=== PATIENT | female | born 1975 | race Caucasian/White ===

== ENCOUNTER 2017-03-05 07:13 | Observation (INO) | payer BC, OTHER ==
[2017-03-05] MEDS ORDERED: Diazepam 5 MG Tab PO ONE (07:29)
[2017-03-05] MEDS ORDERED: HYDROmorphone 1 MG/ML Syringe IM ONE (07:29)
--- NOTE | 2017-03-05 07:35 | EDM.PDOC ---
ED HPI LOWER BACK PAIN/INJURY - General Chief Complaint: Back Pain or Injury Stated Complaint: [facility] Time Seen by Provider: 03/05/17 07:19 Source of Information: Reports: Patient, EMS History Limitations: Reports: No limitations - History of Present Illness INITIAL COMMENTS - FREE TEXT/NARRATIVE: The patient presents with severe low back pain and cramping. This all started last week and it has gotten progressively worse. She was starting to work out more last week with running and lifting weights. She denies any acute injury such as a fall or lifting. She has no numbness or weakness in her legs. She has no bowel or bladder problems. She has no fever, chills, cough, congestion, runny nose, chest pain, shortness of breath, abdominal pain, nausea or vomiting. She says she has a history of back problems and she has been going to her message therapist and doing much better so she decided to work out more last week. 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: Reports: Endocrine/Metabolic History: Reports: Hypothyroidism - Past Surgical History Female Surgical History: Reports: section Social & Family History - Tobacco Use Smoking Status *Q: Never Smoker - Caffeine Use Caffeine Use: Reports: None - Recreational Drug Use Recreational Drug Use: No ED ROS GENERAL - Review of Systems Review Of Systems: See Below Constitutional: Reports: no symptoms HEENT: Reports: No symptoms Respiratory: Reports: No Symptoms Cardiovascular: Reports: No symptoms Endocrine: Reports: no symptoms GI/Abdominal: Reports: No symptoms : Reports: no symptoms Musculoskeletal: Reports: back pain Skin: Reports: no symptoms Neurological: Reports: No Symptoms ED EXAM,LOWER BACK PAIN/INJURY - Physical Exam Exam: See Below Exam Limited By: No limitations General Appearance: alert, no apparent distress Ears: normal external exam Nose: normal inspection Head: atraumatic, normocephalic Neck: normal inspection Respiratory/Chest: no respiratory distress, lungs clear, normal breath sounds Cardiovascular: regular rate, rhythm, no edema, no murmur GI/Abdominal: soft, non tender, no organomegaly, no mass Back Exam: muscle spasm, paraspinal tenderness Extremities: normal inspection Neurological: alert, no motor/sensory deficits, oriented x 3 Course - Vital Signs Last Recorded V/S: Last Vital Signs Temp 97.4 F 03/05/17 07:15 Pulse 83 03/05/17 07:15 Resp 16 03/05/17 07:15 BP 141/81 H 03/05/17 07:15 Pulse Ox 99 03/05/17 07:15 - Orders/Labs/Meds Orders: Active Orders 24 hr Category Date Time Status Cardiac Monitoring [RC] . DIRECTED Care 03/05/17 07:37 Active Peripheral IV Care [RC] . DIRECTED Care 03/05/17 07:38 Active Sodium Chloride 0.9% [Normal Saline] 1,000 ml Med 03/05/17 07:45 Active IV .BOLUS Sodium Chloride 0.9% [Saline Flush] Med 03/05/17 07:37 Active 10 ml FLUSH ASDIRECTED PRN Peripheral IV Insertion Adult [OM.PC] Stat Oth 03/05/17 07:37 Ordered Medication Orders Sodium Chloride (Normal Saline) 1,000 mls @ 1,000 mls/hr IV .BOLUS BALTAZAR Last Admin: 03/05/17 08:00 Dose: 1,000 mls/hr Sodium Chloride (Saline Flush) 10 ml FLUSH ASDIRECTED PRN PRN Reason: Keep Vein Open Last Admin: 03/05/17 07:57 Dose: 10 ml Labs: Laboratory Tests 03/05/17 03/05/17 03/05/17 Range/Units 08:32 08:32 08:32 WBC 11.12 H (3.98-10.04) K/mm3 RBC 5.00 (3.98-5.22) M/mm3 Hgb 14.4 (11.2-15.7) gm/L Hct 42.9 (34.1-44.9) % MCV 85.8 (79.4-94.8) fl MCH 28.8 (25.6-32.2) pg MCHC 33.6 (32.2-35.5) g/dl RDW Std Deviation 40.9 (36.4-46.3) fL Plt Count 207 (182-369) K/mm3 MPV 10.5 (9.4-12.3) fl Neut % (Auto) 79.9 H (34.0-71.1) % Lymph % (Auto) 12.8 L (19.3-51.7) % [place] % (Auto) 5.4 (4.7-12.5) % Eos % (Auto) 1.4 (0.7-5.8) Baso % (Auto) 0.4 (0.1-1.2) % Neut # (Auto) 8.89 H (1.56-6.13) K/mm3 Lymph # (Auto) 1.42 (1.18-3.74) K/mm3 [place] # (Auto) 0.60 H (0.24-0.36) K/mm3 Eos # (Auto) 0.16 (0.04-0.36) K/mm3 Baso # (Auto) 0.04 (0.01-0.08) K/mm3 Sodium 141 (136-145) mEq/L Potassium 4.1 (3.5-5.1) mEq/L Chloride 104 (98-107) mEq/L Carbon Dioxide 27 (21-32) mEq/L Anion Gap 14.1 (5-15) BUN 13 (7-18) mg/dL Creatinine 0.8 (0.55-1.02) mg/dL Est Cr Clr Drug Dosing 86.63 mL/min Estimated GFR (MDRD) > 60 (>60) mL/min BUN/Creatinine Ratio 16.3 (14-18) Glucose 107 H (74-106) mg/dL Calcium 8.7 (8.5-10.1) mg/dL Total Bilirubin 0.8 (0.2-1.0) mg/dL AST 20 (15-37) U/L ALT 34 (14-59) U/L Alkaline Phosphatase 49 (46-116) U/L Total Protein 7.5 (6.4-8.2) g/dl Albumin 3.8 (3.4-5.0) g/dl Globulin 3.7 gm/dL Albumin/Globulin Ratio 1.0 (1-2) HCG, Qual Negative (NEGATIVE) Urine Color (Yellow) Urine Appearance (Clear) Urine pH (5.0-8.0) Ur Specific [place] (1.005-1.030) Urine Protein (Negative) Urine Glucose (UA) (Negative) Urine Ketones (Negative) Urine Occult Blood (Negative) Urine Nitrite (Negative) Urine Bilirubin (Negative) Urine Urobilinogen (0.2-1.0) Ur Leukocyte Esterase (Negative) Urine RBC (0-5) /hpf Urine WBC (0-5) /hpf Ur Epithelial Cells Ur Squamous Epith Cells (0-5) /hpf Urine Bacteria (FEW) /hpf Urine Mucus (FEW) /hpf 03/05/17 Range/Units 09:19 WBC (3.98-10.04) K/mm3 RBC (3.98-5.22) M/mm3 Hgb (11.2-15.7) gm/L Hct (34.1-44.9) % MCV (79.4-94.8) fl MCH (25.6-32.2) pg MCHC (32.2-35.5) g/dl RDW Std Deviation (36.4-46.3) fL Plt Count (182-369) K/mm3 MPV (9.4-12.3) fl Neut % (Auto) (34.0-71.1) % Lymph % (Auto) (19.3-51.7) % [place] % (Auto) (4.7-12.5) % Eos % (Auto) (0.7-5.8) Baso % (Auto) (0.1-1.2) % Neut # (Auto) (1.56-6.13) K/mm3 Lymph # (Auto) (1.18-3.74) K/mm3 [place] # (Auto) (0.24-0.36) K/mm3 Eos # (Auto) (0.04-0.36) K/mm3 Baso # (Auto) (0.01-0.08) K/mm3 Sodium (136-145) mEq/L Potassium (3.5-5.1) mEq/L Chloride (98-107) mEq/L Carbon Dioxide (21-32) mEq/L Anion Gap (5-15) BUN (7-18) mg/dL Creatinine (0.55-1.02) mg/dL Est Cr Clr Drug Dosing mL/min Estimated GFR (MDRD) (>60) mL/min BUN/Creatinine Ratio (14-18) Glucose (74-106) mg/dL Calcium (8.5-10.1) mg/dL Total Bilirubin (0.2-1.0) mg/dL AST (15-37) U/L ALT (14-59) U/L Alkaline Phosphatase (46-116) U/L Total Protein (6.4-8.2) g/dl Albumin (3.4-5.0) g/dl Globulin gm/dL Albumin/Globulin Ratio (1-2) HCG, Qual (NEGATIVE) Urine Color Yellow (Yellow) Urine Appearance Clear (Clear) Urine pH 7.0 (5.0-8.0) Ur Specific [place] 1.020 (1.005-1.030) Urine Protein Negative (Negative) Urine Glucose (UA) Negative (Negative) Urine Ketones Negative (Negative) Urine Occult Blood Negative (Negative) Urine Nitrite Negative (Negative) Urine Bilirubin Negative (Negative) Urine Urobilinogen 0.2 (0.2-1.0) Ur Leukocyte Esterase Negative (Negative) Urine RBC 0-5 (0-5) /hpf Urine WBC 0-5 (0-5) /hpf Ur Epithelial Cells Not Reportable Ur Squamous Epith Cells 0-5 (0-5) /hpf Urine Bacteria Rare (FEW) /hpf Urine Mucus Moderate H (FEW) /hpf Meds: Medications Generic Name Dose Route Start Last Admin Trade Name Freq PRN Reason Stop Dose Admin Sodium Chloride 1,000 mls @ 1,000 mls/hr 03/05/17 07:45 03/05/17 08:00 Normal Saline IV 1,000 mls/hr .BOLUS BALTAZAR Administration Sodium Chloride 10 ml 03/05/17 07:37 03/05/17 07:57 Saline Flush FLUSH 10 ml ASDIRECTED PRN Administration Keep Vein Open Discontinued Medications Generic Name Dose Route Start Last Admin Trade Name Freq PRN Reason Stop Dose Admin Diazepam 10 mg 03/05/17 07:29 03/05/17 07:34 Valium. PO 03/05/17 07:30 10 mg ONETIME ONE Administration Hydromorphone HCl 1 mg 03/05/17 07:29 03/05/17 07:34 Dilaudid IM 03/05/17 07:30 1 mg ONETIME ONE Administration Hydromorphone HCl 1 mg 03/05/17 09:00 03/05/17 09:10 Dilaudid IVPUSH 03/05/17 09:01 1 mg ONETIME ONE Administration Ketorolac Tromethamine 30 mg 03/05/17 10:04 03/05/17 10:09 Toradol IVPUSH 03/05/17 10:05 30 mg ONETIME ONE Administration - Re-Assessments/Exams Free Text/Narrative Re-Assessment/Exam: 03/05/17 07:35 I ordered dilaudid 1mg IM and some valium 10mg by mouth. 03/05/17 10:49 Her x-ray shows minimal degenerative changes. Her CBC and CMP look good. Her HCG is negative. Her UA shows no UTI. I gave her more dilaudid 1mg IV and some toradol 30mg IV. She cannot get up out of bed. I feel she needs to be admitted. I called Dr Pollard and he will come admit the patient. Departure - Departure Time of Disposition: 10:55 Disposition: Refer to Observation Condition: fair Clinical Impression: Intractable low back pain Low back pain Qualifiers: Chronicity: acute Back pain laterality: bilateral Sciatica presence: without sciatica Qualified Code(s): M54.5 - Low back pain Forms: ED Department Discharge - My Orders Last 24 Hours: My Active Orders 03/05/17 07:37 Cardiac Monitoring [RC] . DIRECTED Sodium Chloride 0.9% [Saline Flush] 10 ml FLUSH ASDIRECTED PRN Peripheral IV Insertion Adult [OM.PC] Stat 03/05/17 07:38 Peripheral IV Care [RC] . DIRECTED 03/05/17 07:45 Sodium Chloride 0.9% [Normal Saline] 1,000 ml IV .BOLUS - Assessment/Plan Last 24 Hours: My Active Orders 03/05/17 07:37 Cardiac Monitoring [RC] . DIRECTED Sodium Chloride 0.9% [Saline Flush] 10 ml FLUSH ASDIRECTED PRN Peripheral IV Insertion Adult [OM.PC] Stat 03/05/17 07:38 Peripheral IV Care [RC] . DIRECTED 03/05/17 07:45 Sodium Chloride 0.9% [Normal Saline] 1,000 ml IV .BOLUS
[2017-03-05] MEDS ORDERED: Sodium Chloride 0.9% 10 ML Syringe FLUSH PRN (07:37)
[2017-03-05] MEDS ORDERED: Sodium Chloride 0.9% 1,000 ML IV SCH (07:45)
[2017-03-05] MEDS ORDERED: HYDROmorphone 1 MG/ML Syringe IVPUSH ONE (09:00)
[2017-03-05] MEDS ORDERED: Ketorolac 30 MG/ML SDV IVPUSH ONE (10:04)
--- NOTE | 2017-03-05 10:29 | CR ---
Lumbar spine: AP, lateral and coned-down lateral view centered to the lumbosacral junction were obtained. Vertebral body heights and disc spaces are maintained. Mild scattered endplate osteophytes are seen. Pedicles as well as transverse and spinous processes are intact. No subluxation or fracture is seen. Mild increased stool is noted within the colon. Impression: 1. Minimal degenerative change. 2. Mild increased stool within the colon. Diagnostic code #2
--- NOTE | 2017-03-05 10:56 | PCM.HP ---
H&P History of Present Illness - General Date of Service: 03/05/17 - History of Present Illness Initial Comments - Free Text/Narative: This is a pleasant 41-year-old with history of hypothyroidism back pain one year ago who now presents with an acute flareup of her back pain. She is unable to tell me what was the original trigger that started her back pain one year ago. Since then she has been getting massage therapy which has been helping. She is not on any chronic pain medications. 2 weeks ago she initiated more intensive exercise. Prior to that she was walking for exercise, but now started jogging for a couple minutes. She also started doing some weightlifting including bench presses, chest pressors, and rowing machine, and couple sessions of yoga. She also tried some sort of a stretching routine where she rolled on a foam noodle underneath her back. That was on Wednesday. The next few days and she started noticing some back pain which was getting worse. Throughout the week he became more intense, and became debilitating. She did take work off yesterday, and was bedbound. Her pain is in the lower back from right to left. Exacerbated by moving her legs actively. She reports some heaviness of her legs, but mostly pain is what limits her mobility. The pain is 10 out of 10. She denies any numbness, tingling, or urinary or bowel retention or incontinence. No perineal paresthesias reported. She came to the ER, and received 2 doses of IV Dilaudid, Valium, and Toradol without much help. She was still in intractable pain, which was now rated 8/10, and could not sit up. We are being asked to evaluate her for observation for her pain control. 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: Endocrine/Metabolic History: Reports: Hypothyroidism - Past Surgical History Female Surgical History: Reports: section, D&C Other Surgical History Comment: Tonsilectomy, invitro fertilization Social & Family History - Family History Cardiac: Reports: High cholesterol, Hypertension - Tobacco Use Smoking Status *Q: Never Smoker - Caffeine Use Caffeine Use: Reports: None - Alcohol Use Alcohol Use History: Yes Alcohol Use Frequency: Weekly - Recreational Drug Use Recreational Drug Use: No - Living Situation & Occupation 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 Denies: neck pain, joint swelling, muscle pain Skin: Denies: rash, lesions, lumps Psychiatric: Denies: confusion, depression, anxiety Neurological: Denies: Confusion, Dizziness, Headache, Numbness, Tingling, Weakness Hematologic/Lymphatic: Denies: easy bleeding, easy bruising Exam - Exam Exam: See Below - Vital Signs Vital Signs: Last Vital Signs Temp 36.3 C 03/05/17 07:15 Pulse 83 03/05/17 07:15 Resp 16 03/05/17 07:15 BP 141/81 H 03/05/17 07:15 Pulse Ox 99 03/05/17 07:15 Weight: 88.451 kg - Exam Physical Exam Comments:: Vitals: as above General: alert and oriented. patient is in severe pain with moving. She is essentially confined to the supine position in the bed. Psych: calm and cooperative HEENT: normocephalic, atraumatic. EOMI Cardiac: Normal S1, S2. regular rate. No murmurs rubs, or gallops. No JVD noted. Lungs: CTAB. good air entry bilaterally. Abd: Soft, NT/ND. No HSM noted. Skin: no new visible rashes or purpura noted Back: no point tenderness in the spine noted Neuro: CN grossly intact. positive straight leg raise test bilaterally. Strength otherwise appears to be intact and equal in both legs. - Patient Data Lab Results last 24 hrs: Laboratory Results - last 24 hr 04/07/17 04/07/17 04/07/17 Range/Units 08:32 08:32 08:32 WBC 11.12 H (3.98-10.04) K/mm3 RBC 5.00 (3.98-5.22) M/mm3 Hgb 14.4 (11.2-15.7) gm/L Hct 42.9 (34.1-44.9) % MCV 85.8 (79.4-94.8) fl MCH 28.8 (25.6-32.2) pg MCHC 33.6 (32.2-35.5) g/dl RDW Std Deviation 40.9 (36.4-46.3) fL Plt Count 207 (182-369) K/mm3 MPV 10.5 (9.4-12.3) fl Neut % (Auto) 79.9 H (34.0-71.1) % Lymph % (Auto) 12.8 L (19.3-51.7) % [place] % (Auto) 5.4 (4.7-12.5) % Eos % (Auto) 1.4 (0.7-5.8) Baso % (Auto) 0.4 (0.1-1.2) % Neut # (Auto) 8.89 H (1.56-6.13) K/mm3 Lymph # (Auto) 1.42 (1.18-3.74) K/mm3 [place] # (Auto) 0.60 H (0.24-0.36) K/mm3 Eos # (Auto) 0.16 (0.04-0.36) K/mm3 Baso # (Auto) 0.04 (0.01-0.08) K/mm3 Sodium 141 (136-145) mEq/L Potassium 4.1 (3.5-5.1) mEq/L Chloride 104 (98-107) mEq/L Carbon Dioxide 27 (21-32) mEq/L Anion Gap 14.1 (5-15) BUN 13 (7-18) mg/dL Creatinine 0.8 (0.55-1.02) mg/dL Est Cr Clr Drug Dosing 86.63 mL/min Estimated GFR (MDRD) > 60 (>60) mL/min BUN/Creatinine Ratio 16.3 (14-18) Glucose 107 H (74-106) mg/dL Calcium 8.7 (8.5-10.1) mg/dL Total Bilirubin 0.8 (0.2-1.0) mg/dL AST 20 (15-37) U/L ALT 34 (14-59) U/L Alkaline Phosphatase 49 (46-116) U/L Total Protein 7.5 (6.4-8.2) g/dl Albumin 3.8 (3.4-5.0) g/dl Globulin 3.7 gm/dL Albumin/Globulin Ratio 1.0 (1-2) HCG, Qual Negative (NEGATIVE) Urine Color (Yellow) Urine Appearance (Clear) Urine pH (5.0-8.0) Ur Specific [place] (1.005-1.030) Urine Protein (Negative) Urine Glucose (UA) (Negative) Urine Ketones (Negative) Urine Occult Blood (Negative) Urine Nitrite (Negative) Urine Bilirubin (Negative) Urine Urobilinogen (0.2-1.0) Ur Leukocyte Esterase (Negative) Urine RBC (0-5) /hpf Urine WBC (0-5) /hpf Ur Epithelial Cells Ur Squamous Epith Cells (0-5) /hpf Urine Bacteria (FEW) /hpf Urine Mucus (FEW) /hpf 03/05/17 Range/Units 09:19 WBC (3.98-10.04) K/mm3 RBC (3.98-5.22) M/mm3 Hgb (11.2-15.7) gm/L Hct (34.1-44.9) % MCV (79.4-94.8) fl MCH (25.6-32.2) pg MCHC (32.2-35.5) g/dl RDW Std Deviation (36.4-46.3) fL Plt Count (182-369) K/mm3 MPV (9.4-12.3) fl Neut % (Auto) (34.0-71.1) % Lymph % (Auto) (19.3-51.7) % [place] % (Auto) (4.7-12.5) % Eos % (Auto) (0.7-5.8) Baso % (Auto) (0.1-1.2) % Neut # (Auto) (1.56-6.13) K/mm3 Lymph # (Auto) (1.18-3.74) K/mm3 [place] # (Auto) (0.24-0.36) K/mm3 Eos # (Auto) (0.04-0.36) K/mm3 Baso # (Auto) (0.01-0.08) K/mm3 Sodium (136-145) mEq/L Potassium (3.5-5.1) mEq/L Chloride (98-107) mEq/L Carbon Dioxide (21-32) mEq/L Anion Gap (5-15) BUN (7-18) mg/dL Creatinine (0.55-1.02) mg/dL Est Cr Clr Drug Dosing mL/min Estimated GFR (MDRD) (>60) mL/min BUN/Creatinine Ratio (14-18) Glucose (74-106) mg/dL Calcium (8.5-10.1) mg/dL Total Bilirubin (0.2-1.0) mg/dL AST (15-37) U/L ALT (14-59) U/L Alkaline Phosphatase (46-116) U/L Total Protein (6.4-8.2) g/dl Albumin (3.4-5.0) g/dl Globulin gm/dL Albumin/Globulin Ratio (1-2) HCG, Qual (NEGATIVE) Urine Color Yellow (Yellow) Urine Appearance Clear (Clear) Urine pH 7.0 (5.0-8.0) Ur Specific [place] 1.020 (1.005-1.030) Urine Protein Negative (Negative) Urine Glucose (UA) Negative (Negative) Urine Ketones Negative (Negative) Urine Occult Blood Negative (Negative) Urine Nitrite Negative (Negative) Urine Bilirubin Negative (Negative) Urine Urobilinogen 0.2 (0.2-1.0) Ur Leukocyte Esterase Negative (Negative) Urine RBC 0-5 (0-5) /hpf Urine WBC 0-5 (0-5) /hpf Ur Epithelial Cells Not Reportable Ur Squamous Epith Cells 0-5 (0-5) /hpf Urine Bacteria Rare (FEW) /hpf Urine Mucus Moderate H (FEW) /hpf Result Diagrams: 03/05/17 08:32 03/05/17 08:32 Imaging Impressions last 24 hrs: lumbar x-ray without any acute vertebral abnormalities noted per radiology *Q Meaningful Use (ADM) - VTE *Q VTE Criteria *Q: - Stroke *Q Stroke Criteria *Q: - AMI *Q AMI Criteria *Q: - Problem List (1) Intractable low back pain SNOMED Code(s): 64227683823553716 ICD Code: M54.5 - LOW BACK PAIN Status: Acute Current Visit: Yes Problem List Initiated/Reviewed/Updated: Yes Orders Last 24hrs: Active Orders 24 hr Category Date Time Status Cardiac Monitoring [RC] . DIRECTED Care 03/05/17 07:37 Active Peripheral IV Care [RC] . DIRECTED Care 03/05/17 07:38 Active Sodium Chloride 0.9% [Normal Saline] 1,000 ml Med 03/05/17 07:45 Active IV .BOLUS Sodium Chloride 0.9% [Saline Flush] Med 03/05/17 07:37 Active 10 ml FLUSH ASDIRECTED PRN Peripheral IV Insertion Adult [OM.PC] Stat Oth 03/05/17 07:37 Ordered Medication Orders Sodium Chloride (Normal Saline) 1,000 mls @ 1,000 mls/hr IV .BOLUS BALTAZAR Last Admin: 03/05/17 08:00 Dose: 1,000 mls/hr Sodium Chloride (Saline Flush) 10 ml FLUSH ASDIRECTED PRN PRN Reason: Keep Vein Open Last Admin: 03/05/17 07:57 Dose: 10 ml Assessment/Plan Comment:: acute intractable back pain, probably triggered by her stretching exercises. This is more likely musculoskeletal. There is no significant weakness of the lower extremities, no complaints of bowel or bladder incontinence or retention, or perineal paresthesias. Patient wanted to defer MRI and attempt treatment with pain control. Will start her on ibuprofen 800 mg 3 times a day with small dose of PPI to prevent gastric upset. Keep IV hydromorphone for breakthrough pain. Start her on Flexeril for spasms. Also will try to lidocaine patches across the lower back for topical anesthesia. Consult PT. Chronic medical conditions: Hypothyroidism-continue levothyroxine The patient is full code DVT prophylaxis with subcutaneous Lovenox
[2017-03-05] MEDS ORDERED: Acetaminophen 325 MG Tab PO PRN (11:29)
[2017-03-05] MEDS ORDERED: Bisacodyl 10 MG Supp RECTAL PRN (11:29)
[2017-03-05] MEDS ORDERED: Ondansetron 4 MG Tab.DIS PO PRN (11:29)
[2017-03-05] MEDS ORDERED: Docusate Sodium 100 MG Cap PO PRN (11:29)
[2017-03-05] MEDS ORDERED: Bisacodyl 5 MG Tab PO PRN (11:29)
[2017-03-05] MEDS ORDERED: hydrALAZINE 10 MG Tab PO PRN (11:29)
[2017-03-05] MEDS ORDERED: Lidocaine 5% 700 MG Patch TOP SCH ×2 (11:45→12:23)
[2017-03-05] MEDS ORDERED: HYDROmorphone 0.5 MG/0.5 ML Syringe IVPUSH ONE (11:51)
[2017-03-05] MEDS: Cyclobenzaprine 10 MG Tab PO SCH ×3 (12:57→20:06)
[2017-03-05] MEDS: Ibuprofen 800 MG Tab PO SCH ×3 (12:57→20:06)
[2017-03-05] MEDS: Pantoprazole 40 MG Tab.CR PO SCH (12:57)
[2017-03-05] MEDS: HYDROmorphone 1 MG/ML Syringe IVPUSH PRN (17:37)
[2017-03-05] MEDS: Morphine 15 MG Tab.ER PO SCH (20:05)
[2017-03-06] MEDS: HYDROmorphone 1 MG/ML Syringe IVPUSH PRN ×2 (03:44→09:56)
[2017-03-06] MEDS: SYNTHROID 88 MCG PO SCH (06:29)
[2017-03-06] MEDS: Lidocaine 5% 700 MG Patch TOP SCH (07:38)
[2017-03-06] MEDS: Enoxaparin 40 MG/0.4 ML Syringe SUBCUT SCH (08:22)
[2017-03-06] MEDS: Ibuprofen 800 MG Tab PO SCH ×3 (08:23→20:48)
[2017-03-06] MEDS: Morphine 15 MG Tab.ER PO SCH ×2 (08:24→20:48)
[2017-03-06] MEDS: Pantoprazole 40 MG Tab.CR PO SCH (08:25)
[2017-03-06] MEDS: Cyclobenzaprine 10 MG Tab PO SCH ×3 (08:25→20:49)
--- NOTE | 2017-03-06 12:02 | PCM.PN ---
- General Info Date of Service: 03/06/17 Subjective Update: Denies precipitating factors with the exception of increase activity level within 24-48 of back pain. Functional Status: Reports: pain controlled, tolerating diet, ambulating - Review of Systems General: Reports: No Symptoms HEENT: Reports: no symptoms Pulmonary: Reports: no symptoms Cardiovascular: Reports: No Symptoms Gastrointestinal: Reports: No symptoms Genitourinary: Reports: no symptoms Musculoskeletal: Reports: no symptoms Skin: Reports: no symptoms Neurological: Reports: No Symptoms Psychiatric: Reports: no symptoms - Patient Data Vitals - most recent: Last Vital Signs Temp 36.7 C 03/06/17 08:30 Pulse 97 03/06/17 08:30 Resp 16 03/06/17 08:30 BP 130/74 03/06/17 08:30 Pulse Ox 95 03/06/17 08:30 Weight - most recent: 87.952 kg I&O - last 24 hours: Intake & Output 03/05/17 03/06/17 03/06/17 22:59 06:59 14:59 Intake Total 500 300 Output Total 600 550 Balance -100 -250 Med Orders - Current: Current Medications Acetaminophen (Tylenol) 650 mg PO Q4H PRN PRN Reason: Pain (Mild 1-3)/fever Bisacodyl (Dulcolax) 5 mg PO DAILY PRN PRN Reason: Constipation Bisacodyl (Dulcolax) 10 mg RECTAL DAILY PRN PRN Reason: Constipation Cyclobenzaprine HCl (Flexeril) 10 mg PO TID [facility] Last Admin: 03/06/17 08:25 Dose: 10 mg Docusate Sodium (Colace) 100 mg PO BID PRN PRN Reason: Constipation Enoxaparin Sodium (Lovenox) 40 mg SUBCUT DAILY [facility] Last Admin: 03/06/17 08:22 Dose: 40 mg Hydralazine HCl (Apresoline) 10 mg PO Q6H PRN PRN Reason: systolic BP>180 or diast>105 Hydromorphone HCl (Dilaudid) 1 - 2 mg IVPUSH Q3H PRN PRN Reason: Pain Last Admin: 03/06/17 09:56 Dose: 1 mg Ibuprofen (Motrin) 800 mg PO TID [facility] Last Admin: 03/06/17 08:23 Dose: 800 mg Lidocaine (Lidoderm 5%) 1,400 mg TOP Q24H [facility] Last Admin: 03/06/17 07:38 Dose: 1,400 mg Miscellaneous Information (Remove Patch) 0 ea TRDERM DAILY@1145 [facility] Last Admin: 03/05/17 13:00 Dose: Not Given Morphine Sulfate (Ms Contin) 15 mg PO Q12HR [facility] Last Admin: 03/06/17 08:24 Dose: 15 mg Ondansetron HCl (Zofran Odt) 4 mg PO Q6H PRN PRN Reason: nausea, able to take PO Pantoprazole Sodium (Protonix) 40 mg PO DAILY [facility] Last Admin: 03/06/17 08:25 Dose: 40 mg Synthroid 88 Mcg Tab 0 each PO ACBREAKFAST [facility] Last Admin: 03/06/17 06:29 Dose: 1 each Sodium Chloride (Saline Flush) 10 ml FLUSH ASDIRECTED PRN PRN Reason: Keep Vein Open Last Admin: 03/05/17 07:57 Dose: 10 ml Discontinued Medications Diazepam (Valium.) 10 mg PO ONETIME ONE Stop: 03/05/17 07:30 Last Admin: 03/05/17 07:34 Dose: 10 mg Hydromorphone HCl (Dilaudid) 1 mg IM ONETIME ONE Stop: 03/05/17 07:30 Last Admin: 03/05/17 07:34 Dose: 1 mg Hydromorphone HCl (Dilaudid) 1 mg IVPUSH ONETIME ONE Stop: 03/05/17 09:01 Last Admin: 03/05/17 09:10 Dose: 1 mg Hydromorphone HCl (Dilaudid) 0.5 mg IVPUSH ONETIME ONE Stop: 03/05/17 11:52 Last Admin: 03/05/17 11:56 Dose: 0.5 mg Sodium Chloride (Normal Saline) 1,000 mls @ 1,000 mls/hr IV .BOLUS [facility] Last Admin: 03/05/17 08:00 Dose: 1,000 mls/hr Ketorolac Tromethamine (Toradol) 30 mg IVPUSH ONETIME ONE Stop: 03/05/17 10:05 Last Admin: 03/05/17 10:09 Dose: 30 mg Lidocaine (Lidoderm 5%) 700 mg TOP Q24H [facility] Last Admin: 03/05/17 18:51 Dose: Not Given Lidocaine (Lidoderm 5%) 1,400 mg TOP Q24H [facility] Last Admin: 03/05/17 12:35 Dose: 1,400 mg - Exam Quality Assessment: DVT prophylaxis General: alert, oriented, cooperative HEENT: Pupils equal, Pupils reactive, EOMI Neck: supple, trachea midline, no JVD Lungs: Clear to auscultation Cardiovascular: Regular Rate, Regular Rhythm Abdomen: bowel sounds present, soft, no tenderness, no distension (Female) Exam: Deferred Back Exam: normal inspection Extremities: normal pulses Skin: warm Neurological: no new focal deficit Psy/Mental Status: alert, normal affect, normal mood - Problem List Review Problem List Initiated/Reviewed/Updated: Yes - Plan Plan:: Acute intractable back pain, probably triggered by her stretching exercises. This is more likely musculoskeletal. There is no significant weakness of the lower extremities, no complaints of bowel or bladder incontinence or retention, or perineal paresthesias. Patient wanted to defer MRI and attempt treatment with pain control. Will start her on ibuprofen 800 mg 3 times a day with small dose of PPI to prevent gastric upset. Keep IV hydromorphone for breakthrough pain. Start her on Flexeril for spasms. Also will try to lidocaine patches across the lower back for topical anesthesia. Consult PT. Trial toradol around the clock with low dose Valium Chronic medical conditions: Hypothyroidism-continue levothyroxine The patient is full code DVT prophylaxis with subcutaneous Lovenox
[2017-03-06] MEDS ORDERED: Ketorolac 30 MG/ML SDV IVPUSH ONE (13:38)
[2017-03-07] MEDS: SYNTHROID 88 MCG PO SCH (06:53)
[2017-03-07] MEDS: Lidocaine 5% 700 MG Patch TOP SCH (08:48)
[2017-03-07] MEDS: Cyclobenzaprine 10 MG Tab PO SCH (08:50)
[2017-03-07] MEDS: Enoxaparin 40 MG/0.4 ML Syringe SUBCUT SCH (08:50)
[2017-03-07] MEDS: Ibuprofen 800 MG Tab PO SCH (08:50)
[2017-03-07] MEDS: Pantoprazole 40 MG Tab.CR PO SCH (08:50)
[2017-03-07] MEDS: Morphine 15 MG Tab.ER PO SCH (08:50)
[2017-03-07 09:01] VITALS: BP 136/73
--- NOTE | 2017-03-07 09:19 | PCM.PN ---
- General Info Date of Service: 03/07/17 - Patient Data Vitals - most recent: Last Vital Signs Temp 36.8 C 03/07/17 08:49 Pulse 83 03/07/17 08:49 Resp 17 03/07/17 08:49 BP 136/73 03/07/17 08:49 Pulse Ox 99 03/07/17 08:49 Weight - most recent: 88.677 kg I&O - last 24 hours: Intake & Output 03/06/17 03/07/17 03/07/17 22:59 06:59 14:59 Intake Total 1300 600 Output Total 600 600 Balance 700 0 Lab Results last 24 hrs: Laboratory Results - last 24 hr 03/06/17 03/07/17 03/07/17 Range/Units 18:40 06:44 06:44 WBC 9.13 (3.98-10.04) K/mm3 RBC 4.61 (3.98-5.22) M/mm3 Hgb 13.4 (11.2-15.7) gm/L Hct 39.8 (34.1-44.9) % MCV 86.3 (79.4-94.8) fl MCH 29.1 (25.6-32.2) pg MCHC 33.7 (32.2-35.5) g/dl RDW Std Deviation 41.0 (36.4-46.3) fL Plt Count 188 (182-369) K/mm3 MPV 10.7 (9.4-12.3) fl Neut % (Auto) 67.3 (34.0-71.1) % Lymph % (Auto) 21.5 (19.3-51.7) % [place] % (Auto) 7.3 (4.7-12.5) % Eos % (Auto) 3.5 (0.7-5.8) Baso % (Auto) 0.3 (0.1-1.2) % Neut # (Auto) 6.14 H (1.56-6.13) K/mm3 Lymph # (Auto) 1.96 (1.18-3.74) K/mm3 [place] # (Auto) 0.67 H (0.24-0.36) K/mm3 Eos # (Auto) 0.32 (0.04-0.36) K/mm3 Baso # (Auto) 0.03 (0.01-0.08) K/mm3 Sodium 138 (136-145) mEq/L Potassium 4.3 (3.5-5.1) mEq/L Chloride 106 (98-107) mEq/L Carbon Dioxide 22 (21-32) mEq/L Anion Gap 14.3 (5-15) BUN 12 (7-18) mg/dL Creatinine 0.8 (0.55-1.02) mg/dL Est Cr Clr Drug Dosing 86.63 mL/min Estimated GFR (MDRD) > 60 (>60) mL/min BUN/Creatinine Ratio 15.0 (14-18) Glucose 107 H (74-106) mg/dL Calcium 8.5 (8.5-10.1) mg/dL Urine Color Yellow (Yellow) Urine Appearance Slt cloudy H (Clear) Urine pH 6.0 (5.0-8.0) Ur Specific [place] 1.025 (1.005-1.030) Urine Protein 1+ H (Negative) Urine Glucose (UA) Negative (Negative) Urine Ketones Negative (Negative) Urine Occult Blood Negative (Negative) Urine Nitrite Negative (Negative) Urine Bilirubin Negative (Negative) Urine Urobilinogen 0.2 (0.2-1.0) Ur Leukocyte Esterase Negative (Negative) Urine RBC 0-5 (0-5) /hpf Urine WBC 0-5 (0-5) /hpf Ur Epithelial Cells Not Reportable Ur Squamous Epith Cells 10-20 H (0-5) /hpf Urine Bacteria Moderate H (FEW) /hpf Urine Mucus Few (FEW) /hpf Med Orders - Current: Current Medications Acetaminophen (Tylenol) 650 mg PO Q4H PRN PRN Reason: Pain (Mild 1-3)/fever Bisacodyl (Dulcolax) 5 mg PO DAILY PRN PRN Reason: Constipation Last Admin: 03/07/17 08:50 Dose: 5 mg Bisacodyl (Dulcolax) 10 mg RECTAL DAILY PRN PRN Reason: Constipation Cyclobenzaprine HCl (Flexeril) 10 mg PO TID [facility] Last Admin: 03/07/17 08:50 Dose: 10 mg Diazepam (Valium) 2.5 mg IVPUSH DAILY [facility] Last Admin: 03/07/17 08:51 Dose: 2.5 mg Docusate Sodium (Colace) 100 mg PO BID PRN PRN Reason: Constipation Enoxaparin Sodium (Lovenox) 40 mg SUBCUT DAILY [facility] Last Admin: 03/07/17 08:50 Dose: 40 mg Hydralazine HCl (Apresoline) 10 mg PO Q6H PRN PRN Reason: systolic BP>180 or diast>105 Hydromorphone HCl (Dilaudid) 1 - 2 mg IVPUSH Q3H PRN PRN Reason: Pain Last Admin: 03/06/17 09:56 Dose: 1 mg Ibuprofen (Motrin) 800 mg PO TID [facility] Last Admin: 03/07/17 08:50 Dose: 800 mg Lidocaine (Lidoderm 5%) 1,400 mg TOP Q24H [facility] Last Admin: 03/07/17 08:48 Dose: Not Given Miscellaneous Information (Remove Patch) 0 ea TRDERM DAILY@1145 [facility] Last Admin: 03/06/17 18:38 Dose: 2 ea Morphine Sulfate (Ms Contin) 15 mg PO Q12HR [facility] Last Admin: 03/07/17 08:50 Dose: 15 mg Ondansetron HCl (Zofran Odt) 4 mg PO Q6H PRN PRN Reason: nausea, able to take PO Pantoprazole Sodium (Protonix) 40 mg PO DAILY [facility] Last Admin: 03/07/17 08:50 Dose: 40 mg Synthroid 88 Mcg Tab 0 each PO ACBREAKFAST [facility] Last Admin: 03/07/17 06:53 Dose: 1 each Sodium Chloride (Saline Flush) 10 ml FLUSH ASDIRECTED PRN PRN Reason: Keep Vein Open Last Admin: 03/05/17 07:57 Dose: 10 ml Discontinued Medications Diazepam (Valium.) 10 mg PO ONETIME ONE Stop: 03/05/17 07:30 Last Admin: 03/05/17 07:34 Dose: 10 mg Hydromorphone HCl (Dilaudid) 1 mg IM ONETIME ONE Stop: 03/05/17 07:30 Last Admin: 03/05/17 07:34 Dose: 1 mg Hydromorphone HCl (Dilaudid) 1 mg IVPUSH ONETIME ONE Stop: 03/05/17 09:01 Last Admin: 03/05/17 09:10 Dose: 1 mg Hydromorphone HCl (Dilaudid) 0.5 mg IVPUSH ONETIME ONE Stop: 03/05/17 11:52 Last Admin: 03/05/17 11:56 Dose: 0.5 mg Sodium Chloride (Normal Saline) 1,000 mls @ 1,000 mls/hr IV .BOLUS [facility] Last Admin: 03/05/17 08:00 Dose: 1,000 mls/hr Ketorolac Tromethamine (Toradol) 30 mg IVPUSH ONETIME ONE Stop: 03/05/17 10:05 Last Admin: 03/05/17 10:09 Dose: 30 mg Ketorolac Tromethamine (Toradol) 60 mg IVPUSH ONETIME ONE Stop: 03/06/17 13:39 Last Admin: 03/06/17 14:49 Dose: 60 mg Lidocaine (Lidoderm 5%) 700 mg TOP Q24H [facility] Last Admin: 03/05/17 18:51 Dose: Not Given Lidocaine (Lidoderm 5%) 1,400 mg TOP Q24H [facility] Last Admin: 03/05/17 12:35 Dose: 1,400 mg - My Orders Last 24 Hours: My Active Orders 03/07/17 09:00 Diazepam [Valium] 2.5 mg IVPUSH DAILY 03/08/17 05:00 BASIC METABOLIC PANEL,BMP [CHEM] DAILY CBC WITH AUTO DIFF [HEME] DAILY - Plan Plan:: Acute intractable back pain, probably triggered by her stretching exercises. This is more likely musculoskeletal. There is no significant weakness of the lower extremities, no complaints of bowel or bladder incontinence or retention, or perineal paresthesias. Patient wanted to defer MRI and attempt treatment with pain control. Will start her on ibuprofen 800 mg 3 times a day with small dose of PPI to prevent gastric upset. Keep IV hydromorphone for breakthrough pain. Start her on Flexeril for spasms. Also will try to lidocaine patches across the lower back for topical anesthesia. Consult PT. Trial toradol around the clock with low dose Valium Chronic medical conditions: Hypothyroidism-continue levothyroxine The patient is full code DVT prophylaxis with subcutaneous Lovenox
--- NOTE | 2017-03-07 10:20 | PCM.DCSUM1 ---
Discharge Summary - Hospital Course Free Text/Narrative:: 41 year old female presented with intractable back pain after increasing her exercise routine from walking to jogging, weight lifting as well as floor exercises with a foam roller. Back pain developed abruptly, she has been back pain free for at least 2 years. Regularly uses massage therapy and has had good success. Conservative medical management was used: NSAID, muscle relaxers, narcotic and heat. The patient responded to the prescribed therapy and now rate her back pain as 3/10. Ambulation is now possible with minimal pain. Patient will be discharged to home and may return to work on , 03/11/17. Primary Dx Intractable back pain, unspecified. Condition Stable Activity As tolerated Diet Usual diet Restriction Do not drive on day of discharge Return to work 03/11/17 without restrictions Prescriptions [place] 5/325 # 21 1 tab q 8 h prn pain. NO REFILLS Flexeril 10mg # 30 1 tab TID prn pain. NO REFILLS Motrin 600mg # 24 1 tab q 6h prn pain. NO REFILLS Follow up PCP 1-2 weeks, patient will call for appointment - Discharge Data Discharge Date: 03/07/17 Discharge Disposition: Home, Self-Care 01 Condition: Good - Patient Summary/Data Consults: Consultations 03/05/17 11:35 OT Evaluation and Treatment [CONS] Routine PT Evaluation and Treatment [CONS] Routine - Patient Instructions Diet: Usual Diet as Tolerated Activity: As Tolerated Driving: Do Not Drive Showering/Bathing: March Shower Notify Provider of: Increased Pain - Discharge Plan Prescriptions/Med Rec: Cyclobenzaprine [Flexeril] 10 mg PO TID PRN #30 tablet PRN Reason: back pain Hydrocodone/Acetaminophen [[place] 5-325] 1 tab PO Q4H PRN 21 Days PRN Reason: Pain Ibuprofen [Motrin] 600 mg PO Q6H PRN #24 tablet PRN Reason: Pain Home Medications: Home Meds Levothyroxine [Synthroid] 88 mcg PO ACBREAKFAST 03/05/17 [History] Cyclobenzaprine [Flexeril] 10 mg PO TID PRN #30 tablet 03/07/17 [Rx] Hydrocodone/Acetaminophen [[place] 5-325] 1 tab PO Q4H PRN 21 Days 03/07/17 [Rx] Ibuprofen [Motrin] 600 mg PO Q6H PRN #24 tablet 03/07/17 [Rx] Patient Handouts: Back Exercises, [id number], Back Pain, Adult, [id number] , Low Back Strain With Rehab-[facility] Referrals: Camila Gonzalez DO [Primary Care Provider] - (Please make own follow up appointment in 5-7 days. ) - Discharge Summary/Plan Comment DC Time >30 min.: No - General Info Date of Service: 03/05/17 Functional Status: Reports: pain controlled, tolerating diet, ambulating, urinating - Review of Systems General: Reports: No Symptoms HEENT: Reports: no symptoms Pulmonary: Reports: no symptoms Cardiovascular: Reports: No Symptoms Gastrointestinal: Reports: No symptoms Genitourinary: Reports: no symptoms Musculoskeletal: Reports: back pain (02/05; able to ambulate better.) Skin: Reports: no symptoms Neurological: Reports: No Symptoms Psychiatric: Reports: no symptoms - Patient Data Vitals - Most Recent: Last Vital Signs Temp 36.8 C 03/07/17 08:49 Pulse 83 03/07/17 08:49 Resp 17 03/07/17 08:49 BP 136/73 03/07/17 08:49 Pulse Ox 99 03/07/17 08:49 Weight - Most Recent: 88.677 kg I&O - Last 24 hours: Intake & Output 03/06/17 03/07/17 03/07/17 22:59 06:59 14:59 Intake Total 1300 600 Output Total 600 600 Balance 700 0 Lab Results - Last 24 hrs: Laboratory Results - last 24 hr 03/06/17 03/07/17 03/07/17 Range/Units 18:40 06:44 06:44 WBC 9.13 (3.98-10.04) K/mm3 RBC 4.61 (3.98-5.22) M/mm3 Hgb 13.4 (11.2-15.7) gm/L Hct 39.8 (34.1-44.9) % MCV 86.3 (79.4-94.8) fl MCH 29.1 (25.6-32.2) pg MCHC 33.7 (32.2-35.5) g/dl RDW Std Deviation 41.0 (36.4-46.3) fL Plt Count 188 (182-369) K/mm3 MPV 10.7 (9.4-12.3) fl Neut % (Auto) 67.3 (34.0-71.1) % Lymph % (Auto) 21.5 (19.3-51.7) % [place] % (Auto) 7.3 (4.7-12.5) % Eos % (Auto) 3.5 (0.7-5.8) Baso % (Auto) 0.3 (0.1-1.2) % Neut # (Auto) 6.14 H (1.56-6.13) K/mm3 Lymph # (Auto) 1.96 (1.18-3.74) K/mm3 [place] # (Auto) 0.67 H (0.24-0.36) K/mm3 Eos # (Auto) 0.32 (0.04-0.36) K/mm3 Baso # (Auto) 0.03 (0.01-0.08) K/mm3 Sodium 138 (136-145) mEq/L Potassium 4.3 (3.5-5.1) mEq/L Chloride 106 (98-107) mEq/L Carbon Dioxide 22 (21-32) mEq/L Anion Gap 14.3 (5-15) BUN 12 (7-18) mg/dL Creatinine 0.8 (0.55-1.02) mg/dL Est Cr Clr Drug Dosing 86.63 mL/min Estimated GFR (MDRD) > 60 (>60) mL/min BUN/Creatinine Ratio 15.0 (14-18) Glucose 107 H (74-106) mg/dL Calcium 8.5 (8.5-10.1) mg/dL Urine Color Yellow (Yellow) Urine Appearance Slt cloudy H (Clear) Urine pH 6.0 (5.0-8.0) Ur Specific [place] 1.025 (1.005-1.030) Urine Protein 1+ H (Negative) Urine Glucose (UA) Negative (Negative) Urine Ketones Negative (Negative) Urine Occult Blood Negative (Negative) Urine Nitrite Negative (Negative) Urine Bilirubin Negative (Negative) Urine Urobilinogen 0.2 (0.2-1.0) Ur Leukocyte Esterase Negative (Negative) Urine RBC 0-5 (0-5) /hpf Urine WBC 0-5 (0-5) /hpf Ur Epithelial Cells Not Reportable Ur Squamous Epith Cells 10-20 H (0-5) /hpf Urine Bacteria Moderate H (FEW) /hpf Urine Mucus Few (FEW) /hpf Med Orders - Current: Current Medications Acetaminophen (Tylenol) 650 mg PO Q4H PRN PRN Reason: Pain (Mild 1-3)/fever Bisacodyl (Dulcolax) 5 mg PO DAILY PRN PRN Reason: Constipation Last Admin: 03/07/17 08:50 Dose: 5 mg Bisacodyl (Dulcolax) 10 mg RECTAL DAILY PRN PRN Reason: Constipation Cyclobenzaprine HCl (Flexeril) 10 mg PO TID [facility] Last Admin: 03/07/17 08:50 Dose: 10 mg Diazepam (Valium) 2.5 mg IVPUSH DAILY [facility] Last Admin: 03/07/17 08:51 Dose: 2.5 mg Docusate Sodium (Colace) 100 mg PO BID PRN PRN Reason: Constipation Enoxaparin Sodium (Lovenox) 40 mg SUBCUT DAILY [facility] Last Admin: 03/07/17 08:50 Dose: 40 mg Hydralazine HCl (Apresoline) 10 mg PO Q6H PRN PRN Reason: systolic BP>180 or diast>105 Hydromorphone HCl (Dilaudid) 1 - 2 mg IVPUSH Q3H PRN PRN Reason: Pain Last Admin: 03/06/17 09:56 Dose: 1 mg Ibuprofen (Motrin) 800 mg PO TID [facility] Last Admin: 03/07/17 08:50 Dose: 800 mg Lidocaine (Lidoderm 5%) 1,400 mg TOP Q24H [facility] Last Admin: 03/07/17 08:48 Dose: Not Given Miscellaneous Information (Remove Patch) 0 ea TRDERM DAILY@1145 [facility] Last Admin: 03/06/17 18:38 Dose: 2 ea Morphine Sulfate (Ms Contin) 15 mg PO Q12HR [facility] Last Admin: 03/07/17 08:50 Dose: 15 mg Ondansetron HCl (Zofran Odt) 4 mg PO Q6H PRN PRN Reason: nausea, able to take PO Pantoprazole Sodium (Protonix) 40 mg PO DAILY [facility] Last Admin: 03/07/17 08:50 Dose: 40 mg Synthroid 88 Mcg Tab 0 each PO ACBREAKFAST [facility] Last Admin: 03/07/17 06:53 Dose: 1 each Sodium Chloride (Saline Flush) 10 ml FLUSH ASDIRECTED PRN PRN Reason: Keep Vein Open Last Admin: 03/05/17 07:57 Dose: 10 ml Discontinued Medications Diazepam (Valium.) 10 mg PO ONETIME ONE Stop: 03/05/17 07:30 Last Admin: 03/05/17 07:34 Dose: 10 mg Hydromorphone HCl (Dilaudid) 1 mg IM ONETIME ONE Stop: 03/05/17 07:30 Last Admin: 03/05/17 07:34 Dose: 1 mg Hydromorphone HCl (Dilaudid) 1 mg IVPUSH ONETIME ONE Stop: 03/05/17 09:01 Last Admin: 03/05/17 09:10 Dose: 1 mg Hydromorphone HCl (Dilaudid) 0.5 mg IVPUSH ONETIME ONE Stop: 03/05/17 11:52 Last Admin: 03/05/17 11:56 Dose: 0.5 mg Sodium Chloride (Normal Saline) 1,000 mls @ 1,000 mls/hr IV .BOLUS [facility] Last Admin: 03/05/17 08:00 Dose: 1,000 mls/hr Ketorolac Tromethamine (Toradol) 30 mg IVPUSH ONETIME ONE Stop: 03/05/17 10:05 Last Admin: 03/05/17 10:09 Dose: 30 mg Ketorolac Tromethamine (Toradol) 60 mg IVPUSH ONETIME ONE Stop: 03/06/17 13:39 Last Admin: 03/06/17 14:49 Dose: 60 mg Lidocaine (Lidoderm 5%) 700 mg TOP Q24H [facility] Last Admin: 03/05/17 18:51 Dose: Not Given Lidocaine (Lidoderm 5%) 1,400 mg TOP Q24H [facility] Last Admin: 03/05/17 12:35 Dose: 1,400 mg - Exam Quality Assessment: Reports: DVT prophylaxis General: Reports: alert, oriented, cooperative, no acute distress HEENT: Reports: Pupils equal, Pupils reactive, EOMI Neck: Reports: supple, trachea midline Lungs: Reports: Clear to auscultation, Normal respiratory effort Cardiovascular: Reports: Regular Rate, Regular Rhythm Abdomen: Reports: bowel sounds present, soft, no tenderness, no distension (Female) Exam: Deferred Rectal (Female) Exam: Deferred Back Exam: Reports: normal inspection Extremities: Reports: normal pulses Skin: Reports: warm Neurological: Reports: no new focal deficit, normal gait, normal speech. Denies : strength equal bilateral Psy/Mental Status: Reports: alert, normal affect, normal mood *Q Meaningful Use (DIS) - VTE *Q VTE Criteria *Q: - Stroke *Q Stroke Criteria *Q: - AMI *Q AMI Criteria *Q:
== END 2017-03-07 11:57 | disposition home or self-care (01) ==
LOC: JD.ED 07:13 → JD.MS 11:30
PROVIDERS: ADMIT Internal Medicine; ATTEND Internal Medicine
DX: M54.5 Low back pain (principal); E03.9 Hypothyroidism, unspecified; Z98.890 Other specified postprocedural states; Z79.899 Other long term (current) drug therapy
CPT/HCPCS: 36415; 72100; 80048; 80053; 81001; 84703; 85025; 96361; 96372; 96374; 96375; 96376; 97110; 97162; 99285; A9270; G0378; J1170; J1650; J1885; J3360; J7040; J7050; P9612; 99218